=== PATIENT | female | born 1995 | race Caucasian/White ===

== ENCOUNTER 2018-05-29 21:41 | Emergency (ER) | payer SELFPAY ==
[~2018-05-29] VITALS: Ht 162.6 cm; Wt 88.5 kg
[2018-05-29 22:01] VITALS: Ht 162.6 cm; Wt 88.5 kg
[2018-05-29 23:11] VITALS: BP 153/82
== END 2018-05-29 23:11 | disposition home or self-care (01) ==
LOC: ED 21:41
DX: J11.1 Influenza due to unidentified influenza virus with other respiratory manifestations (principal); J45.909 Unspecified asthma, uncomplicated

== ENCOUNTER 2018-08-11 23:26 | Emergency (ER) | payer OTHER ==
[~2018-08-11] VITALS: Ht 160 cm; Wt 90.7 kg
[2018-08-11 23:40] VITALS: Ht 160 cm; Wt 90.7 kg
[2018-08-12 01:41] VITALS: BP 132/79
== END 2018-08-12 01:41 | disposition home or self-care (01) ==
LOC: ED 23:26
DX: S80.811A Abrasion, right lower leg, initial encounter (principal); S80.212A Abrasion, left knee, initial encounter; S70.312A Abrasion, left thigh, initial encounter; L08.9 Local infection of the skin and subcutaneous tissue, unspecified; J45.909 Unspecified asthma, uncomplicated; W18.30XA Fall on same level, unspecified, initial encounter; Y93.89 Activity, other specified; Y92.89 Other specified places as the place of occurrence of the external cause; Y99.8 Other external cause status